=== PATIENT | male | born 1950 | race Caucasian/White ===

== ENCOUNTER 2017-03-25 07:52 | Day surgery (SDC) | payer MEDICARE ==
[2017-03-25] MEDS ORDERED: PROPOFOL 10 MG/ML VIAL IV ONE (07:53)
[2017-03-25] MEDS ORDERED: LIDOCAINE 2% MDV (20MG/ML) 20ML VIAL IV ONE (07:53)
[2017-03-25] MEDS ORDERED: FENTANYL PF 100MCG/2ML VIAL IV ONE (07:53)
--- NOTE | 2017-03-25 12:40 | Operative Note ---
DATE OF SURGERY: 03/25/2017 REFERRING PHYSICIAN: Endy Gillespie DO PREOPERATIVE DIAGNOSIS: See below. POSTOPERATIVE DIAGNOSIS: See below. PROCEDURE: ESOPHAGOGASTRODUODENOSCOPY with multiple biopsies. INDICATION: History of short-segment Salcido's esophagus. Patient returns at this time for surveillance. Intravenous sedation was administered by the Department of Anesthesiology and included Diprivan titrated to effect. PROCEDURE: Following informed consent from this alert individual, including a discussion of the risks and benefits of the procedure and an opportunity for the patient to ask questions, the patient was placed in the left lateral decubitus position. An Olympus [id number] video endoscope was inserted into the esophagus without resistance. The proximal esophagus had a normal appearance with normal folds and distensibility. The mid esophagus, likewise, was free from mucosal changes. The distal esophageal segment demonstrated some slight irregularity of the squamocolumnar junction, and multiple biopsies of this area were taken. The stomach was entered and found to erythematous in the gastric antrum. There were no ulcerations or erosions noted. No other mucosal changes appreciated. Biopsies from throughout the stomach were obtained as well. Pylorus is symmetrical and patent. The duodenal bulb, sweep and descending duodenum were examined in a serial fashion and found to be normal. The endoscope was then withdrawn back into the body of the stomach, where retroflexion accomplished following air insufflation failed to demonstrate any additional changes. The endoscope was then straightened and withdrawn back through the esophagus and removed from the patient. The patient tolerated the procedure well and was returned to the recovery area in stable condition. IMPRESSION: 1. Slight irregularity of the squamocolumnar junction. Biopsies taken. 2. Antral gastritis. Biopsies taken. RECOMMENDATIONS: The patient at this time will continue on pantoprazole 40 mg daily. He will continue with pantoprazole. He should receive a copy of his pathology report at home in the next 2-3 weeks. If not, he was asked to call my office to review results of testing today. Followup will be with his primary care physician. As always, thank you for allowing me to participate in the care of your patient. CC: Alize MCCARTHY
== END 2017-03-25 09:48 | disposition home or self-care (01) ==
LOC: HOP 07:52
PROVIDERS: ATTEND Internal Medicine Gastroenterology
DX: K22.70 Barrett's esophagus without dysplasia (principal); K31.89 Other diseases of stomach and duodenum; K21.9 Gastro-esophageal reflux disease without esophagitis; I10 Essential (primary) hypertension; K29.60 Other gastritis without bleeding
CPT/HCPCS: 43235; 00731; 88305; 88313; J3010

== ENCOUNTER 2019-02-16 09:18 | Day surgery (SDC) | payer MEDICARE, OTHER ==
[2019-02-16] MEDS ORDERED: LIDOCAINE 2% MDV (20MG/ML) 20ML VIAL IV ONE (09:19)
[2019-02-16] MEDS ORDERED: PROPOFOL 10 MG/ML VIAL IV ONE (09:19)
--- NOTE | 2019-02-16 17:30 | Operative Note ---
OPERATION: COLONOSCOPY to the cecum with cold snare polypectomy x5, cold biopsy forceps polypectomy x2. INDICATION: Prior history of adenomatous polyps. The patient returns at this time for surveillance. The computer was not functioning today and I am not clear about the timing of his last procedure or findings but we both agreed he had a history of adenomatous polyps. He is returning for surveillance. ANESTHESIA: Intravenous sedation was administered by the department of anesthesiology and included Diprivan titrated to effect. PROCEDURE: Following informed consent from this alert individual including a discussion of the risks and benefits of the procedure and an opportunity for the patient to ask questions, the patient was in the left lateral decubitus position. A digital rectal examination was performed. No abnormalities were noted. Following this, the Olympus [id number] video colonoscope was inserted into the rectum without resistance. The rectal mucosa had a normal appearance with normal folds and distensibility. The colonoscope was advanced to the sigmoid colon where a few scattered diverticula were noted. It was further advanced up through the bowel to the level of the cecum without much difficulty. Throughout the remainder of the bowel, the mucosa appeared normal, the folds were normal, and the bowel was fairly well distensible. The cecum was well defined by noting the appendiceal orifice and ileocecal valve. The colon preparation overall was good. From the base of the cecum, the colonoscope was then withdrawn. In the cecum itself, there were a total of three 4 mm polyps noted which were removed with cold snare polypectomy and suctioned through the colonoscope into a collection trap. There were 2 additional small 4 mm polyps noted in the ascending colon likewise removed with cold snare polypectomy. There were 2 additional polyps measuring 3 mm in size in the transverse colon removed with biopsy forceps. Scattered diverticula were again seen in the sigmoid colon. Retroflexion in the rectum was endoscopically normal. The endoscope was straightened and removed. The patient tolerated the procedure well and was returned to the recovery area in stable condition. IMPRESSION: 1. Three cecal polyps and two ascending colon polyps removed with cold snare polypectomy as described above. 2. Two transverse colon polyps which were diminutive in size removed with biopsy forceps. 3. Sigmoid diverticulosis. RECOMMENDATIONS: Further recommendations will be forthcoming pending results of pathology obtained today. Followup will also be with Endy Gillespie DO. As always, thank you for allowing me to participate in the care of your patient. HELGA
== END 2019-02-16 11:34 | disposition home or self-care (01) ==
LOC: HOP 09:18
PROVIDERS: ATTEND Internal Medicine Gastroenterology
DX: Z09 Encounter for follow-up examination after completed treatment for conditions other than malignant neoplasm (principal); Z86.010 Personal history of colon polyps; D12.2 Benign neoplasm of ascending colon; D12.0 Benign neoplasm of cecum; D12.3 Benign neoplasm of transverse colon; I10 Essential (primary) hypertension; M60.9 Myositis, unspecified; Z86.19 Personal history of other infectious and parasitic diseases; K57.30 Diverticulosis of large intestine without perforation or abscess without bleeding